=== PATIENT | male | born 1970 | race Caucasian/White ===

== ENCOUNTER → 2017-01-13 | Outpatient (CLI) | payer MEDICARE ==
[2015-08-27 03:51] VITALS: BP 127/65
[~2017-01-13] MED LIST: ADULT LOW DOSE81 MG PO; KLOR-CON 1010 MEQ; LASIX20 M1 PO; LISINOPRIL20 MG PO; METOPROLOL SUCC50 M2 PO; NIACIN500 M5 PO; NITROSTAT0.4 M1 SL; OXYCODONE PO; SIMVASTATIN40 M1 PO
== END ==
LOC: LAB 15:47
DX: E11.65 Type 2 diabetes mellitus with hyperglycemia (principal); I25.10 Atherosclerotic heart disease of native coronary artery without angina pectoris

== ENCOUNTER → 2017-03-18 | Outpatient (CLI) | payer MEDICARE ==
[2015-08-27 03:51] VITALS: BP 127/65
[2017-03-18 08:20] LABS: HEMATOCRIT 46.8 % (42.0-52.0); HEMOGLOBIN 15.6 g/dL (13.5-18.0); MEAN PLATELET VOLUME 11.6 fl (7.4-10.4); RED BLOOD COUNT 4.96 M/mm3 (4.20-5.60); RED CELL DISTRIBUTION WIDTH 12.6 % (11.5-14.5); WHITE BLOOD COUNT 8.9 K/mm3 (4.8-10.8)
== END ==
LOC: LAB 08:11
PROVIDERS: Family Medicine
DX: R53.83 Other fatigue (principal); N52.9 Male erectile dysfunction, unspecified; E11.65 Type 2 diabetes mellitus with hyperglycemia; I73.9 Peripheral vascular disease, unspecified

== ENCOUNTER → 2018-03-17 | Outpatient (CLI) | payer MEDICARE ==
[~2018-03-17] VITALS: Ht 185.4 cm; Wt 131.8 kg
[~2018-03-17] MED LIST changes: +CLOPIDOGREL PO; +RIOMET500 MG/51; +SILDENAFIL CITR20 MG PO; +ZOCOR40 M1 PO
[2018-03-17 12:47] VITALS: BP 159/93
== END ==
LOC: AMSURD 12:14
DX: I25.10 Atherosclerotic heart disease of native coronary artery without angina pectoris (principal); I10 Essential (primary) hypertension; F41.9 Anxiety disorder, unspecified; E11.9 Type 2 diabetes mellitus without complications; I25.2 Old myocardial infarction; Z79.01 Long term (current) use of anticoagulants; Z79.84 Long term (current) use of oral hypoglycemic drugs; Z79.899 Other long term (current) drug therapy; Z87.891 Personal history of nicotine dependence

== ENCOUNTER → 2018-04-13 | Outpatient (CLI) | payer MEDICARE ==
[2018-03-17 12:47] VITALS: BP 159/93
[2018-04-13 07:50] LABS: ALBUMIN 4.3 g/dL (3.5-5.0); POTASSIUM 5.4 mmol/L (3.6-5.0); TOTAL BILIRUBIN 1.4 mg/dL (0.2-1.3); TOTAL PROTEIN 7.5 g/dL (6.3-8.2)
== END ==
LOC: LAB 07:14
PROVIDERS: Family Medicine
DX: I25.10 Atherosclerotic heart disease of native coronary artery without angina pectoris (principal); I25.2 Old myocardial infarction; I10 Essential (primary) hypertension; E11.9 Type 2 diabetes mellitus without complications; F41.9 Anxiety disorder, unspecified

== ENCOUNTER → 2018-04-29 | Outpatient (CLI) | payer MEDICARE ==
[2018-03-17 12:47] VITALS: BP 159/93
[2018-04-29 14:36] LABS: POTASSIUM 4.4 mmol/L (3.6-5.0)
== END ==
LOC: LAB 14:06
PROVIDERS: Family Medicine
DX: I10 Essential (primary) hypertension (principal); E87.5 Hyperkalemia; E11.9 Type 2 diabetes mellitus without complications; F41.9 Anxiety disorder, unspecified

== ENCOUNTER → 2018-10-24 | Outpatient (CLI) | payer MEDICARE ==
[2018-08-24 09:20] VITALS: BP 174/104
[~2018-10-24] MED LIST changes: +ASPIRIN E.C. 8181 MG PO; +ESCITALOPRAM10 MG PO; +GLUCOPHAGE PO; +KAPSPARGO SPRIN50 MG PO; +KLONOPIN 0.5MG0.5 MG PO; -METOPROLOL SUCC50 M2 PO
== END ==
LOC: RAD 08:44
PROVIDERS: Family Medicine
DX: R91.1 Solitary pulmonary nodule (principal)
CPT/HCPCS: Q9967

== ENCOUNTER → 2019-04-06 | Outpatient (CLI) | payer MEDICARE ==
[2018-08-24 09:20] VITALS: BP 174/104
[2019-04-06 08:43] LABS: TOTAL PROTEIN 7.4 g/dL (6.4-8.3)
[2019-04-06 08:45] LABS: TOTAL BILIRUBIN 1.5 mg/dL (0.2-1.2)
[2019-04-06 08:48] LABS: DIRECT BILIRUBIN 0.6 mg/dL (0.0-0.5)
== END ==
LOC: LAB 08:22
PROVIDERS: Family Medicine
DX: I74.5 Embolism and thrombosis of iliac artery (principal); I70.202 Unspecified atherosclerosis of native arteries of extremities, left leg; I25.10 Atherosclerotic heart disease of native coronary artery without angina pectoris; E11.51 Type 2 diabetes mellitus with diabetic peripheral angiopathy without gangrene; E11.65 Type 2 diabetes mellitus with hyperglycemia; I25.2 Old myocardial infarction

== ENCOUNTER → 2019-04-14 | Outpatient (CLI) | payer MEDICARE ==
[2018-08-24 09:20] VITALS: BP 174/104
== END ==
LOC: RAD 08:36
DX: R59.0 Localized enlarged lymph nodes (principal); R91.1 Solitary pulmonary nodule
CPT/HCPCS: Q9967

== ENCOUNTER → 2019-12-13 | Outpatient (CLI) | payer MEDICARE ==
[2018-08-24 09:20] VITALS: BP 174/104
[2019-12-13 11:24] LABS: HEMATOCRIT 41.7 % (42.0-52.0); HEMOGLOBIN 14.2 g/dL (13.5-18.0); MEAN PLATELET VOLUME 11.2 fl (7.4-10.4); RED BLOOD COUNT 4.19 M/mm3 (4.20-5.60); RED CELL DISTRIBUTION WIDTH 14.9 % (11.5-14.5); WHITE BLOOD COUNT 6.7 K/mm3 (4.8-10.8)
[2019-12-13 11:32] LABS: POTASSIUM 4.2 mmol/L (3.5-5.1)
[2019-12-13 11:34] LABS: CALCIUM 8.8 mg/dL (8.3-10.5)
[2019-12-13 11:35] LABS: TOTAL PROTEIN 7.8 g/dL (6.4-8.3)
[2019-12-13 11:37] LABS: TOTAL BILIRUBIN 3.1 mg/dL (0.2-1.2)
== END ==
LOC: LAB 11:14
PROVIDERS: Family Medicine
DX: R91.1 Solitary pulmonary nodule (principal); I10 Essential (primary) hypertension; E11.65 Type 2 diabetes mellitus with hyperglycemia; R60.0 Localized edema

== ENCOUNTER → 2020-01-03 | Outpatient (CLI) | payer MEDICARE ==
[2018-08-24 09:20] VITALS: BP 174/104
== END ==
LOC: LAB 08:17
DX: E80.6 Other disorders of bilirubin metabolism (principal)

== ENCOUNTER → 2020-02-26 | Outpatient (CLI) | payer MEDICARE ==
[2018-08-24 09:20] VITALS: BP 174/104
== END ==
LOC: RAD 08:00
DX: E80.6 Other disorders of bilirubin metabolism (principal); R16.0 Hepatomegaly, not elsewhere classified; R60.0 Localized edema

== ENCOUNTER → 2020-07-31 | Outpatient (CLI) | payer MEDICARE ==
[2018-08-24 09:20] VITALS: BP 174/104
[2020-07-31 11:41] LABS: POTASSIUM 4.4 mmol/L (3.5-5.1)
[2020-07-31 11:42] LABS: ALBUMIN 4.2 g/dL (3.5-5.0)
[2020-07-31 11:43] LABS: CALCIUM 9.1 mg/dL (8.3-10.5)
[2020-07-31 11:44] LABS: TOTAL PROTEIN 8.1 g/dL (6.4-8.3)
[2020-07-31 11:49] LABS: DIRECT BILIRUBIN 0.8 mg/dL (0.0-0.5)
== END ==
LOC: LAB 11:16
PROVIDERS: Family Medicine
DX: Z12.5 Encounter for screening for malignant neoplasm of prostate (principal); I10 Essential (primary) hypertension; I77.9 Disorder of arteries and arterioles, unspecified; E11.9 Type 2 diabetes mellitus without complications; E80.4 Gilbert syndrome